=== PATIENT | female | born 1975 | race Caucasian/White ===

== ENCOUNTER 2024-02-02 09:06 | Day surgery (SDC) | payer OTHER ==
[2024-01-30 13:35] LABS: HCG,QUAL RESULT NEGATIVE (NEGATIVE)
[~2024-02-02] VITALS: Ht 165.1 cm; Wt 89.8 kg
[~2024-02-02 09:06] MED LIST: CEFAZOLIN SOD 2 GM in D5W 50 ML IV ONE
[2024-02-02] MEDS ORDERED: DEXAMETHASONE SOD PHOSPHATE 4 MG/ML VIAL ONE (10:50)
[2024-02-02] MEDS ORDERED: WATER FOR IRRIGATION,STERILE 1,000 ML IRRIG.SOLN IR ONE (10:50)
[2024-02-02] MEDS ORDERED: METOCLOPRAMIDE HCL 10 MG/2 ML VIAL ONE (10:50)
[2024-02-02] MEDS ORDERED: LR 1,000 ML IV.SOLN IV ONE (10:50)
[2024-02-02] MEDS ORDERED: fentaNYL CITRATE/PF 100 MCG/2 ML AMP ONE (10:50)
[2024-02-02] MEDS ORDERED: MIDAZOLAM HCL 5 MG/5 ML VIAL ONE (10:50)
[2024-02-02] MEDS ORDERED: BUPIVACAINE /PF 0.25% 30 ML VIAL INJ ONE (10:50)
[2024-02-02] MEDS ORDERED: ROCURONIUM BROMIDE 10 MG/ML (ZEMURON) ONE (10:50)
[2024-02-02] MEDS ORDERED: PROPOFOL 200MG/ 20ML VIAL (DIPRIVAN) IV ONE (10:50)
[2024-02-02] MEDS ORDERED: ONDANSETRON HCL 4 MG/2 ML VIAL ONE (10:50)
[2024-02-02] MEDS ORDERED: GLYCOPYRROLATE 0.2 MG/ML VIAL ONE (10:50)
[2024-02-02] MEDS ORDERED: NS 50 ML BAG IV ONE (10:50)
[2024-02-02] MEDS ORDERED: SEVOFLURANE 15 MIN GAS INH ONE (10:50)
[2024-02-02] MEDS ORDERED: NEOSTIGMINE METHYLSULFATE 1 MG/ML, 10 ML VIAL ONE (10:50)
[2024-02-02] MEDS ORDERED: ACETAMINOPHEN I.V. 1000 MG 100 ML IV ONE (11:17)
[2024-02-02 11:30] VITALS: O2SAT 99
[2024-02-02] MEDS ORDERED: LR 1,000 ML IV SCH (11:45)
[2024-02-02] MEDS ORDERED: ONDANSETRON HCL 4 MG/2 ML VIAL IVP PRN (11:45)
[2024-02-02] MEDS ORDERED: HYDROmorphone 2 MG/ML VIAL IVP PRN (11:45)
[2024-02-02] MEDS ORDERED: HYDROmorphone 1 MG/ML INJ. CARTRIDGE IVP PRN (11:45)
[2024-02-02] MEDS ORDERED: HYDROcodone/ACETAMIN 5-325 MG TAB (NORCO/ VICODIN) PO PRN ×2 (12:15)
[2024-02-02] MEDS ORDERED: D5/0.45 NS 1,000 ML IV SCH (12:15)
[2024-02-02] MEDS ORDERED: KETOROLAC TROMETHAMINE 30 MG VIAL ONE (13:33)
[2024-02-02] MEDS: KETOROLAC TROMETHAMINE 30 MG VIAL IVP PRN (13:45)
[2024-02-02 15:25] VITALS: BP_SYST 106; PULSE 70; RESP 17
== END 2024-02-02 14:57 | disposition home or self-care (01) ==
LOC: SDS 09:06 → SMU 09:07 → SDS 14:57
PROVIDERS: ATTEND Colon & Rectal Surgery
DX: K80.10 Calculus of gallbladder with chronic cholecystitis without obstruction (principal); E66.01 Morbid (severe) obesity due to excess calories; Z68.33 Body mass index [BMI] 33.0-33.9, adult
CPT/HCPCS: 84703; 87081; 47563; 74300; 88304; 93005; J3490 ×2; J0690; J1100; J1885; J2765; J2250; J2405; J2704; J3010; Q9967; J7060; J7120; C1727; J0131; J2710; 76000